=== PATIENT | female | born 1975 | race Caucasian/White ===

== ENCOUNTER → 2018-12-08 10:58 | Outpatient (CLI) | payer OTHER, SELFPAY ==
--- NOTE | 2019-01-28 08:12 | PM.CARDMON.1 ---
Quality Improvement Coordinator (Rn) Report Referral & Results Date Patient Seen: 12/08/18 Requesting provider: Tiffani Valdez Indication: Palpitations Duration of monitoring (days): 14 Diary information: No patient diary events were recorded 6 patient triggered events were associated with sinus rhythm, PACs and PVCs Data: Minimum heart rate identified was 41 beats per minute at 08:49 on 12/12/2018 Maximum sinus heart rate was 149 beats per minute at 15:00 on 12/18/2018 Maximum overall heart rate was 156 beats per minute during a 5 beat run of SVT/atrial tachycardia Less than 1% of identified beats or either ventricular supraventricular ectopic in origin No other runs of a supraventricular tachycardia type origin Impression: Essentially unremarkable youth nutritional monitor No etiology clearly identified on this study for patient's reported symptoms of palpitations. There were both PVCs and PACs associated with patient triggered times as well as sinus rhythm. overall burden of ectopic beats is very very low. Clinical correlation suggested
== END ==
PROVIDERS: Visit Provider Family Medicine
DX: R00.2 Palpitations (principal)
CPT/HCPCS: 0296T; 0298T

== ENCOUNTER 2020-05-23 13:16 | Emergency (ER) | payer OTHER, SELFPAY ==
--- NOTE | 2020-05-23 13:22 | DI.RAD.S_ITS ---
PROCEDURE: XR ACUTE ABDOMEN SERIES INDICATIONS: abd pain/ no bm x10 days TECHNIQUE: One view chest and two views of the abdomen were acquired. COMPARISON: None. FINDINGS: Surgical changes and devices: None. Chest: Lungs are clear. Heart size is normal. No pleural effusions. No pneumoperitoneum. Large amount of diffuse stool seen throughout the colon. Mild lateral curvature of the spine. IMPRESSION: Large amount of stool seen throughout the colon in keeping with fecal retention/impaction. No specific evidence of bowel obstruction seen at this time although if the patient's symptoms do not improve, continued surveillance with abdominal series radiographs could be performed. Dictated by: Meño Avelar M.D. on 05/23/2020 at 13:47 Approved by: Meño Avelar M.D. on 05/23/2020 at 13:48
[2020-05-23 13:26] VITALS: BP 130/87; PULSE 83; RESP 16; O2SAT 99
[2020-05-23] MEDS: MAGNESIUM CITRATE 300 ML SOLUTION PO (14:55)
--- NOTE | 2020-05-23 15:14 | PC.NURSE ---
standby for rectal exam. Patient tolerated well
[2020-05-23 15:19] VITALS: BP 128/76; PULSE 78; RESP 12; O2SAT 98
--- NOTE | 2020-05-23 19:21 | ED_ITS ---
HPI - Abdominal Pain <COLT LoraP - Last Filed: 05/24/20 00:30> General Chief Complaint: Abdominal Pain Stated Complaint: stomach issues x10 days Time Seen by Provider: 05/23/20 14:15 Source: patient Mode of arrival: Ambulatory Limitations: no limitations History of Present Illness HPI narrative: This is a 44 year female, smoker, who takes Suboxone daily and has history of constipation presents to ED with chief complain of no good bowel movement for last 10 days. Reports that she has bowel movement about 3 times a week usually but has not had never this long in the past without bowel movments. Patient has some epigastric region pain after she eats or drinks and she is afraid of eating since has not had good bowel movements. Patient had 1 episode of emesis after eating dinner 2 days ago. Patient denies history of any abdominal surgery in the past. Patient denies changes in her diet. Patient had passed gas last 2 days ago. She has started using over the counter MiraLax and Dulcolax orally about 5 days ago and had used Fleet enema once and had watery stool. She denies fever, chills, or urinary symptoms. Related Data Home Medications Medication Instructions Recorded Confirmed Dulcolax Stool Softener (dss) PO 05/24/20 Miralax 1 packet PO BID 05/24/20 05/24/20 buprenorphine-naloxone film 05/24/20 Review of Systems <JOSH Lora - Last Filed: 05/24/20 00:30> Review of Systems Narrative: General: Denies fever, chills, fatigue, malaise, sweats. HEENT: Denies sinus pain, ear pain, sore throat, difficulty swallowing, dizziness. Respiratory: Denies dyspnea, cough, wheezing, hemoptysis, sputum. Cardiovascular: Denies chest pain, palpitations, orthopnea, edema. Gastrointestinal: See HPI : Denies dysuria, frequency, incontinence, hematuria, urinary retention. Musculoskeletal: Denies weakness, joint pain or bony pain. Skin: Denies rash, skin lesions, or other. Neurologic: Denies weakness, headache, numbness, change in speech, confusion, se izures, incoordination. Psychiatric: No concerning psychosocial issues. 12-point review of systems is negative except for those stated above. Patient History <JOSH Lora - Last Filed: 05/24/20 00:30> Medical History Chronic back pain (Acute) Narcotic drug use (Acute) Surgical History History of bilateral tubal ligation (Acute) History of tonsillectomy (Acute) Previous back surgery (Acute) Social History Smoking Status: Current every day smoker Smoking Status: Current every day smoker Substance Use Type: does not use Exam <JOSH Lora - Last Filed: 05/24/20 00:30> Narrative Exam Narrative: GEN: Alert, oriented x 3, well appearing and nourished, and in no acute distress. Head: Normal cephalic, atraumatic. No scalp or temporal tenderness, palpable mass or rash. EYES: Pupils are equal, round, and reactive to light and accommodation. Extraocular muscles are intact bilaterally. There is no subconjunctival hemorrhage, exudate and sclera non-icteric. ENT: Hearing grossly intact. Nose without bleeding, purulent discharge or deviation. Mucous membrane moist, no mucosal lesion. Throat without erythema, tonsillar hypertrophy or exudate. Uvula in midline, airway patent. Neck: Trachea in midline. No JVD, non-tender without lymphadenopathy. No masses or thyroid megaly. Supple, non-tender and no meningeal signs. CARDIAC: Normal regular rate and rhythm without murmurs, gallops, or rubs. No chest wall tenderness. No peripheral edema, cyanosis or pallor. Capillary refill is less than 2 seconds. RESPIRATORY: Lungs are clear to auscultate bilaterally. No cough, wheezes, rales, or rhonchi. No stridor, respiratory distress, increase work of breathing, or accessary muscle used. ABD: Abdomen soft, nontender and non-distended. No guarding or rebound tenderness to palpate. Bowel sounds are normal in all 4 quadrants. There is no palpable masses or organomegaly. No stool palpated in rectum (stand by assist with MAGDA Chaves). No obvious internal hemorrhoid palpated. EXT: Full painless ROM of all extremities with no loss of sensation, strength, effusion or edema. SKIN: Warm, dry, normal color for patient. No erythema, lesions or rash over visible areas. BACK: Nontender without deformity or crepitance. No flank tenderness. NEUROLOGICAL: Alert and oriented to place, time and person. Sensation and motor function intact bilaterally. No facial droops, dysphasia. PSYCHIATRIC: Good judgement and reason, without hallucinations, abnormal affect or abnormal behaviors during the examination. Patient is not suicidal. Initial Vital Signs Initial Vital Signs: Vital Signs Pulse Rate 83 05/23/20 13:26 Respiratory Rate 16 05/23/20 13:26 Blood Pressure 130/87 05/23/20 13:26 Pulse Oximetry 99 05/23/20 13:26 <Christian Sandhu MD - Last Filed: 05/29/20 03:43> Initial Vital Signs Initial Vital Signs: Vital Signs Pulse Rate 83 05/23/20 13:26 Respiratory Rate 16 05/23/20 13:26 Blood Pressure 130/87 05/23/20 13:26 Pulse Oximetry 99 05/23/20 13:26 Scores <JOSH Lora - Last Filed: 05/24/20 00:30> GCS [place] coma scale eye opening: Spontaneous [place] coma scale verbal response: Orientated [place] coma scale motor response: Obey commands [place] coma scale total score: 15 qSOFA Altered Mental Status (GCS <15): No Respiratory rate greater than/equal to 22: No Systolic blood pressure less than or equal to 100: No qSOFA Total: 0 0-1 Not High Risk 1-3 High risk Course <JOSH Lora - Last Filed: 05/24/20 00:30> Orders Ordered: Discontinued Medications Magnesium Citrate (Magnesium Citrate) 300 ml PO NOW ONE Stop: 05/23/20 14:44 Last Admin: 05/23/20 14:55 Dose: 300 ml Documented by: SILVIA Vital Signs Vital signs: Vital Signs - 8 hr 05/23/20 13:26 05/23/20 15:19 Pulse Rate 83 78 Respiratory Rate 16 12 Blood Pressure 130/87 128/76 Pulse Oximetry 99 98 <Chritsian Sandhu MD - Last Filed: 05/29/20 03:43> Orders Ordered: Discontinued Medications Magnesium Citrate (Magnesium Citrate) 300 ml PO NOW ONE Stop: 05/23/20 14:44 Last Admin: 05/23/20 14:55 Dose: 300 ml Documented by: HAYDEN Vital Signs Vital signs: Vital Signs - 8 hr 05/23/20 13:26 05/23/20 15:19 Pulse Rate 83 78 Respiratory Rate 16 12 Blood Pressure 130/87 128/76 Pulse Oximetry 99 98 MDM - Abdominal Pain <Miles JOSH Martel - Last Filed: 05/24/20 00:30> Differential Diagnosis Differential diagnosis: Likely abdominal pain, constipation, small bowel obstruction and other (Large bowel obstruction) Medical Records Attestation: I reviewed the patient's medical records. Imaging Data Abdominal x-ray: Radiologist's Impression: [address] [address] XRay Report Signed Patient: Juana Pollard#: [id number] : 1975Acct:[id number] Age/Sex: 44 / FDate of Service: 05/23/20 Loc: ED Accession Number: [id number] Procedure: XR acute abdomen series Ordering Provider: Christian Sandhu MD PROCEDURE: XR ACUTE ABDOMEN SERIES INDICATIONS: abd pain/ no bm x10 days TECHNIQUE: One view chest and two views of the abdomen were acquired. COMPARISON: None. FINDINGS: Surgical changes and devices: None. Chest: Lungs are clear. Heart size is normal. No pleural effusions. No pneumoperitoneum. Large amount of diffuse stool seen throughout the colon. Mild lateral curvature of the spine. IMPRESSION: Large amount of stool seen throughout the colon in keeping with fecal retention/impaction. No specific evidence of bowel obstruction seen at this time although if the patient's symptoms do not improve, continued surveillance with abdominal series radiographs could be performed. Dictated by: Meño Avelar M.D. on 05/23/2020 at 13:47 Approved by: Meño Avelar M.D. on 05/23/2020 at 13:48 [facility] Narrative Medical decision making narrative: This is 44-year-old female who presents to ED with constipation for last 10 days without good bowel movements. Patient had 1 episode of vomiting 2 days ago and she is still able to tolerate p.o. fluid and solid foods even though she is afraid to eat. Patient denies constitutional symptoms. Patient is using since 5 days ago [id number] MiraLax, Dulcolax, and Fleet enema once without good results. Patient initially declined rectal exam which she finally agrees to. No stool felt in rectal vault. Abdominal exam was unremarkable. Abdomen was soft to palpate without significant tenderness. Bowel sounds active in 4 quadrants. Patient is afebrile with within normal vital signs. Acute abdominal series indicates large amount of the future stool seen throughout the colon without obvious bowel obstructions appreciated at this time. Patient given 1/2 bottle of magnesium citrate in ED and discharged to home with remaining dose which she will repeated this afternoon at home. Patient informed if no bowel movements next 1 or 2 days, she may need soap enema to help with constipation/impaction and repeat imaging test. Return precautions were discussed with patient and patient verbalized understanding and agreement with the treatment plan. Discharge Plan Departure Patient Disposition: Home Clinical Impression: Constipation Qualifiers: Constipation type: unspecified constipation type Qualified Code(s): K59.00 - Constipation, unspecified Discharge Date/Time: 05/23/20 15:19 Instructions: DI for Constipation Activity Restrictions/Additional Instructions: You have been diagnosed with [constipation. No specific evidence of bowel obstruction per x-ray test. Please continue with your bowel regimen with stool softener, MiraLax and etc. ]. What to do: *Take your medications as directed. You were given with magnesium citrate while in ED. *Follow up with your primary care provider in 2-3 days, call for an appointment. Let them know you were seen in the ED and that we asked you to be seen in follow up. If you do not bowel movements next couple of days, you may require additional therapy such as soap enema. Please hydrate adequately as we discussed and adding high-fiber diet. *Return to ED if you have any new, worsening, or concerning symptoms, such as [fever, unable to tolerate fluids, vomiting, chest pain, breathing difficulty, or any acute concerns]. Prescriptions: No Action buprenorphine-naloxone 8-2 mg film RF: 0 Dulcolax Stool Softener (dss) PO RF: 0 Miralax 1 packet PO BID RF: 0 Referrals: [facility] [Outside] Stand Alone Forms: Work Release Note <Christian Sandhu MD - Last Filed: 05/29/20 03:43> Cosign ED Attending Cosignature Attestation: I was immediately available in the department for consultation. This documentation has been reviewed and I agree with assessment and plan. Supervised by Christian Sandhu MD
== END 2020-05-23 15:19 | disposition home or self-care (01) ==
PROVIDERS: Emergency Provider Nurse Practitioner Family
DX: K59.00 Constipation, unspecified (principal)
CPT/HCPCS: 74022; 99283

== ENCOUNTER 2020-09-08 11:35 | Emergency (ER) | payer OTHER, SELFPAY ==
[2020-09-08] VITALS (8 sets, daily range): BP systolic 111–143; BP diastolic 58–82; PULSE 57–81; RESP 12–18; TEMP 36.9; O2SAT 98–100; BMI 29.0
[2020-09-08 12:17] LABS: COVID19 -Nasal RAPID Negative (Negative)
[2020-09-08] MEDS: ONDANSETRON 4 MG/2 ML INJ IV ×2 (12:33→15:17)
[2020-09-08] MEDS: SODIUM CHLORIDE 0.9% 1,000 ML 1000 ML IV (12:33)
[2020-09-08 12:39] LABS: Add Manual Diff / Slide Review NO; Basophils Absolute Auto 0 /uL (0-100); Basophils Percent Auto 0.4 % (0-2); Eosinophils Absolute Auto 100 /uL (0-450); Eosinophils Percent Auto 1.8 % (2-4); Hematocrit 42.8 % (36-46); Hemoglobin 14.4 g/dL (12.0-16.0); Lymphocytes Absolute Auto 1800 /uL (1100-4500); Lymphocytes Percent Auto 21.9 % (25-40); Mean Corpuscular HGB Conc 33.6 % (30-36); Mean Corpuscular Hemoglobin 30.5 PG (26-34); Mean Corpuscular Volume 90.8 fL (80-100); Monocytes Absolute Auto 400 /uL (0-900); Monocytes Percent Auto 4.4 % (3-14); Neutrophils Absolute Auto 5900 /uL (1500-7000); Neutrophils Percent Auto 71.5 % (50-75); Platelet Count 249 X10^3/uL (150-400); Red Blood Cell Count 4.72 X10^6/uL (4.0-5.2); Red Cell Distribution Width 13.5 % (11.6-14.8); White Blood Cell Count 8.3 X10^3/uL (4.5-11.0)
[2020-09-08 12:41] LABS: Alanine Aminotransferase 23 IU/L (<35); Albumin 4.2 g/dL (3.5-5.0); Albumin Globulin Ratio 1.4 (1.0-2.8); Alkaline Phosphatase 54 U/L (38-126); Aspartate Aminotransferase 26 IU/L (14-36); BUN Creatinine Ratio 25.5 (6-22); Bilirubin Total 0.7 mg/dL (0.2-1.3); Blood Urea Nitrogen 14 mg/dL (7-17); Carbon Dioxide 31 mmol/L (22-32); Chloride 104 mmol/L (98-107); Estimated Glomerular Filt Rate > 60.0 mL/min (>60); Glucose 103 mg/dL (70-100); HEMOLYSIS < 15 (0-50); Lipase 44 U/L (23-300); Potassium 3.4 mmol/L (3.4-5.1); Sodium 137 mmol/L (137-145); Total Protein 7.2 g/dL (6.3-8.2)
[2020-09-08 13:19] LABS: Influenza A - CEPHEID Flu A NEGATIVE (NEGATIVE); Influenza B - CEPHEID Flu B NEGATIVE (NEGATIVE)
[2020-09-08] MEDS: ACETAMINOPHEN 325 MG TABLET 650 MG PO (13:27)
[2020-09-08 13:39] LABS: COVID19 -Nasal RAPID Negative (Negative)
--- NOTE | 2020-09-08 13:57 | ED_ITS ---
HPI - Nausea/Vomiting/Diarrhea <JOSH Lora - Last Filed: 09/08/20 21:33> General Chief complaint: Nausea/Vomiting/Diarrhea Stated complaint: EXPOSED TO COVID, FEELS SICK Time Seen by Provider: 09/08/20 11:49 Source: patient Mode of arrival: Family Vehicle Limitations: no limitations History of Present Illness HPI Narrative: This is a 44 year female, smoker, who has past medical history significant for chronic back pain take naproxen daily presents to ED with chief complain of COVID exposure 4 days ago from a co-worker who had tested positive for COVID 2 days ago. She works at [employer] where residents and staff are both tested positive for Covids. She reports symptoms started yesterday evening with body aches, subjective fever, chills, multiple episodes of nausea and vomiting, and headaches. Patient had sore throat 2 days ago which resolved. Patient reports had about 7 episodes of vomiting and 8 episodes of diarrhea without hematemesis, hematochezia, or tarry stools. Emesis mixed with food particles, liquids, and mucus. Patient denies chest pain, cough, short of breath, dizziness. Patient has intermittent abdominal cramping discomfort but not at this time. She has been taking ibuprofen since last night and last dose was 2 hours before coming into ED. patient denies recent antibiotic medication use. Related Data Home Medications Medication Instructions Recorded Confirmed Dulcolax Stool Softener (dss) PO 05/24/20 Miralax 1 packet PO BID 05/24/20 05/24/20 buprenorphine-naloxone film 05/24/20 Previous Rx's Medication Instructions Recorded ondansetron 4 mg PO BID-TID PRN #7 tab 09/08/20 Allergies Allergy/AdvReac Type Severity Reaction Status Date / Time No Known Drug Allergies Allergy Verified 09/08/20 11:55 Review of Systems <JOSH Lora - Last Filed: 09/08/20 21:33> Review of Systems Narrative: General: See HPI HEENT: Denies sinus pain, ear pain, (+) resolved sore throat, difficulty swallowing, dizziness. Respiratory: Denies dyspnea, cough, wheezing, hemoptysis, sputum. Cardiovascular: Denies chest pain, palpitations, orthopnea, edema. Gastrointestinal: Denies nausea, vomiting, abdominal pain, diarrhea, constipation, melena. : See HPI Musculoskeletal: See HPI Skin: Denies rash, skin lesions, or other. Neurologic: Denies weakness, headache, numbness, change in speech, confusion, seizures, incoordination. Psychiatric: No concerning psychosocial issues. 12-point review of systems is negative except for those stated above. Patient History <JOSH Lora - Last Filed: 09/08/20 21:33> Medical History Chronic back pain Narcotic drug use Surgical History History of bilateral tubal ligation History of tonsillectomy Previous back surgery Social History Smoking Status: Current every day smoker Smoking Status: Current every day smoker tobacco type: cigarettes alcohol intake frequency: 0-2 drinks per day Substance Use Type: does not use Exam <JOSH Lora - Last Filed: 09/08/20 21:33> Narrative Exam Narrative: GEN: Alert, oriented x 3, well appearing and nourished, and in no acute distress or toxic appearing. Head: Normal cephalic, atraumatic. No scalp or temporal tenderness, palpable mass or rash. EYES: Pupils are equal, round, and reactive to light and accommodation. Extraocular muscles are intact bilaterally. There is no subconjunctival hemorrhage, exudate and sclera non-icteric. ENT: Bilateral auditory canals and tympanic membranes clear. Hearing grossly intact. Nose without bleeding, purulent discharge or deviation. Facial sinuses nontender to palpate. Mucous membrane moist, no mucosal lesion. Throat without erythema, tonsillar hypertrophy or exudate. Uvula in midline, airway patent. Neck: Trachea in midline. No JVD, non-tender without lymphadenopathy. No masses or thyroid megaly. Supple, non-tender and no meningeal signs. CARDIAC: Normal regular rate and rhythm without murmurs, gallops, or rubs. No chest wall tenderness. No peripheral edema, cyanosis or pallor. Capillary refill is less than 2 seconds. RESPIRATORY: Lungs are clear to auscultate bilaterally. No cough, wheezes, rales, or rhonchi. No stridor, respiratory distress, increase work of breathing, or accessary muscle used. ABD: Abdomen soft, nontender and non-distended. No guarding or rebound tenderness to palpate. Bowel sounds are normal in all 4 quadrants. There is no palpable masses or organomegaly. EXT: Full painless ROM of all extremities with no loss of sensation, strength, effusion or edema. SKIN: Warm, dry, normal color for patient. No erythema, lesions or rash over visible areas. BACK: Nontender without deformity or crepitance. No flank tenderness. NEUROLOGICAL: Alert and oriented to place, time and person. Sensation and motor function intact bilaterally. No facial droops, dysphasia. PSYCHIATRIC: Good judgement and reason, without hallucinations, abnormal affect or abnormal behaviors during the examination. Patient is not suicidal. Initial Vital Signs Initial Vital Signs: Vital Signs Pulse Rate 76 09/08/20 11:48 Respiratory Rate 12 09/08/20 11:48 Blood Pressure 136/77 09/08/20 11:48 Pulse Oximetry 98 09/08/20 11:48 <Lluvia Chandler MD - Last Filed: 09/15/20 07:21> Initial Vital Signs Initial Vital Signs: Vital Signs Pulse Rate 76 09/08/20 11:48 Respiratory Rate 12 09/08/20 11:48 Blood Pressure 136/77 09/08/20 11:48 Pulse Oximetry 98 09/08/20 11:48 Scores <JOSH Lora - Last Filed: 09/08/20 21:33> GCS Negar coma scale eye opening: Spontaneous Negar coma scale verbal response: Orientated [place] coma scale motor response: Obey commands Negar coma scale total score: 15 qSOFA Altered Mental Status (GCS <15): No Respiratory rate greater than/equal to 22: No Systolic blood pressure less than or equal to 100: No qSOFA Total: 0 0-1 Not High Risk 1-3 High risk Course <JOSH Lora - Last Filed: 09/08/20 21:33> Orders Ordered: Discontinued Medications Acetaminophen (Acetaminophen 325 Mg Tablet) 650 mg PO NOW ONE Stop: 09/08/20 13:22 Last Admin: 09/08/20 13:27 Dose: 650 mg Documented by: GEGE Sodium Chloride (Normal Saline 0.9%) 1,000 mls @ 1,000 mls/hr IV BOLUS ONE Stop: 09/08/20 13:19 Last Infusion: 09/08/20 14:03 Dose: 0 mls/hr Documented by: Admin: 09/08/20 12:33 Dose: 1,000 mls/hr Documented by: GEGE Sodium Chloride (Normal Saline 0.9%) 500 mls @ 1,000 mls/hr IV BOLUS ONE Stop: 09/08/20 15:28 Last Infusion: 09/08/20 15:53 Dose: 0 mls/hr Documented by: Admin: 09/08/20 15:16 Dose: 1,000 mls/hr Documented by: GEGE Ketorolac Tromethamine (Ketorolac 60 Mg/2 Ml Vial) 15 mg IV NOW ONE Stop: 09/08/20 14:57 Last Admin: 09/08/20 15:16 Dose: 15 mg Documented by: GEGE Ondansetron HCl (Ondansetron 4 Mg/2 Ml Inj) 4 mg IV NOW ONE Stop: 09/08/20 12:21 Last Admin: 09/08/20 12:33 Dose: 4 mg Documented by: GEGE Ondansetron HCl (Ondansetron 4 Mg/2 Ml Inj) 4 mg IV NOW ONE Stop: 09/08/20 14:57 Last Admin: 09/08/20 15:17 Dose: 4 mg Documented by: GEGE Reevaluation(s) Reevaluation #1: Patient reports nausea improved and happy to find out about negative rapid Covid test result. Time: 13:20 Reevaluation #2: Reports headache has not improved much after the Tylenol. Toradol IV has been ordered and additional Zofran not resolved nausea. Additinoal NS 500 mL ordred. She does not appears to be toxic. Again no nuchal rigidity or unusual rashes seen at this time. Time: 14:45 Reevaluation #3: MAGDA Yeager informs that patient had an episode of not feelng well. Noticed sinus bradycardia on the monitor and EKG ordered. Patient denies chest pain, dyspnea, abdominal pain, severe nausea. Time: 15:25 Vital Signs Vital signs: Vital Signs - 8 hr 09/08/20 14:00 09/08/20 15:00 09/08/20 16:03 Pulse Rate 59 L 65 59 L Respiratory Rate 14 14 16 Blood Pressure 116/63 111/64 131/64 Pulse Oximetry 100 100 99 <Lluvia Chandler MD - Last Filed: 09/15/20 07:21> Orders Ordered: Discontinued Medications Acetaminophen (Acetaminophen 325 Mg Tablet) 650 mg PO NOW ONE Stop: 09/08/20 13:22 Last Admin: 09/08/20 13:27 Dose: 650 mg Documented by: GEGE Sodium Chloride (Normal Saline 0.9%) 1,000 mls @ 1,000 mls/hr IV BOLUS ONE Stop: 09/08/20 13:19 Last Infusion: 09/08/20 14:03 Dose: 0 mls/hr Documented by: Admin: 09/08/20 12:33 Dose: 1,000 mls/hr Documented by: GEGE Sodium Chloride (Normal Saline 0.9%) 500 mls @ 1,000 mls/hr IV BOLUS ONE Stop: 09/08/20 15:28 Last Infusion: 09/08/20 15:53 Dose: 0 mls/hr Documented by: Admin: 09/08/20 15:16 Dose: 1,000 mls/hr Documented by: GEGE Ketorolac Tromethamine (Ketorolac 60 Mg/2 Ml Vial) 15 mg IV NOW ONE Stop: 09/08/20 14:57 Last Admin: 09/08/20 15:16 Dose: 15 mg Documented by: GEGE Ondansetron HCl (Ondansetron 4 Mg/2 Ml Inj) 4 mg IV NOW ONE Stop: 09/08/20 12:21 Last Admin: 09/08/20 12:33 Dose: 4 mg Documented by: GEGE Ondansetron HCl (Ondansetron 4 Mg/2 Ml Inj) 4 mg IV NOW ONE Stop: 09/08/20 14:57 Last Admin: 09/08/20 15:17 Dose: 4 mg Documented by: GEGE Vital Signs Vital signs: Vital Signs - 8 hr 09/08/20 14:00 09/08/20 15:00 09/08/20 16:03 Pulse Rate 59 L 65 59 L Respiratory Rate 14 14 16 Blood Pressure 116/63 111/64 131/64 Pulse Oximetry 100 100 99 MDM - Nausea/Vomiting/Diarrhea <Miles JOSH Martel - Last Filed: 09/08/20 21:33> Differential Diagnosis Differential diagnosis: Likely gastroenteritis, clostridium difficile infection, dehydration and other (Covid, Flu) Medical Records Attestation: I reviewed the patient's medical records. Lab Data Attestation: I reviewed the patient's lab results. Result diagrams: 09/08/20 12:00 09/08/20 12:00 Labs: Lab Results 09/08/20 09/08/20 09/08/20 Range/Units 11:50 12:00 12:00 WBC 8.3 (4.5-11.0) X10^3/uL RBC 4.72 (4.0-5.2) X10^6/uL Hgb 14.4 (12.0-16.0) g/dL Hct 42.8 (36-46) % MCV 90.8 (80-100) fL MCH 30.5 (26-34) PG MCHC 33.6 (30-36) % RDW 13.5 (11.6-14.8) % Plt Count 249 (150-400) X10^3/uL Neut % (Auto) 71.5 (50-75) % Lymph % (Auto) 21.9 L (25-40) % [place] % (Auto) 4.4 (3-14) % Eos % (Auto) 1.8 L (2-4) % Baso % (Auto) 0.4 (0-2) % Neut # (Auto) 5900 (4642-0909) /uL Lymph # (Auto) 1800 (6013-0511) /uL [place] # (Auto) 400 (0-900) /uL Eos # (Auto) 100 (0-450) /uL Baso # (Auto) 0 (0-100) /uL Sodium 137 (137-145) mmol/L Potassium 3.4 (3.4-5.1) mmol/L Chloride 104 (98-107) mmol/L Carbon Dioxide 31 (22-32) mmol/L BUN 14 (7-17) mg/dL Creatinine 0.55 (0.52-1.04) mg/dL Estimated GFR > 60.0 (>60) mL/min BUN/Creatinine Ratio 25.5 H (6-22) Glucose 103 H (70-100) mg/dL Calcium 9.0 (8.4-10.2) mg/dL Total Bilirubin 0.7 (0.2-1.3) mg/dL AST 26 (14-36) IU/L ALT 23 (<35) IU/L Alkaline Phosphatase 54 (38-126) U/L Total Protein 7.2 (6.3-8.2) g/dL Albumin 4.2 (3.5-5.0) g/dL Globulin 3.0 (1.7-4.1) g/dL Albumin/Globulin Ratio 1.4 (1.0-2.8) Lipase 44 (23-300) U/L Urine Color Urine Appearance Urine pH (4.5-8.0) Ur Specific [place] (1.000-1.035) Urine Protein (Negative) Urine Glucose (UA) (Negative) g/dL Urine Ketones (NEGATIVE) Urine Occult Blood (Negative) Urine Nitrate (Negative) Urine Bilirubin (NEGATIVE) Urine Urobilinogen (0.2) E.U./dL Ur Leukocyte Esterase (NEGATIVE) Urine RBC (0-5/HPF) Urine WBC (0-5/HPF) Urine Bacteria (None) Ur Culture Indicated? Micro UA Comment Urine Test (Negative) COVID-19 PCR Negative (Negative) Influenza A (RT-PCR) (NEGATIVE) Influenza B (RT-PCR) (NEGATIVE) 09/08/20 09/08/20 09/08/20 Range/Units 12:40 12:40 13:37 WBC (4.5-11.0) X10^3/uL RBC (4.0-5.2) X10^6/uL Hgb (12.0-16.0) g/dL Hct (36-46) % MCV (80-100) fL MCH (26-34) PG MCHC (30-36) % RDW (11.6-14.8) % Plt Count (150-400) X10^3/uL Neut % (Auto) (50-75) % Lymph % (Auto) (25-40) % [place] % (Auto) (3-14) % Eos % (Auto) (2-4) % Baso % (Auto) (0-2) % Neut # (Auto) (6713-6299) /uL Lymph # (Auto) (7030-0679) /uL [place] # (Auto) (0-900) /uL Eos # (Auto) (0-450) /uL Baso # (Auto) (0-100) /uL Sodium (137-145) mmol/L Potassium (3.4-5.1) mmol/L Chloride (98-107) mmol/L Carbon Dioxide (22-32) mmol/L BUN (7-17) mg/dL Creatinine (0.52-1.04) mg/dL Estimated GFR (>60) mL/min BUN/Creatinine Ratio (6-22) Glucose (70-100) mg/dL Calcium (8.4-10.2) mg/dL Total Bilirubin (0.2-1.3) mg/dL AST (14-36) IU/L ALT (<35) IU/L Alkaline Phosphatase (38-126) U/L Total Protein (6.3-8.2) g/dL Albumin (3.5-5.0) g/dL Globulin (1.7-4.1) g/dL Albumin/Globulin Ratio (1.0-2.8) Lipase (23-300) U/L Urine Color Yellow Urine Appearance Clear Urine pH 6.5 (4.5-8.0) Ur Specific [place] 1.020 (1.000-1.035) Urine Protein Negative (Negative) Urine Glucose (UA) Negative (Negative) g/dL Urine Ketones Negative (NEGATIVE) Urine Occult Blood 1+ H (Negative) Urine Nitrate Negative (Negative) Urine Bilirubin Negative (NEGATIVE) Urine Urobilinogen 0.2 (0.2) E.U./dL Ur Leukocyte Esterase Negative (NEGATIVE) Urine RBC None seen (0-5/HPF) Urine WBC None seen (0-5/HPF) Urine Bacteria None seen (None) Ur Culture Indicated? Cult not indicated Micro UA Comment Microscopic normal Urine Test (Negative) COVID-19 PCR Negative (Negative) Influenza A (RT-PCR) Flu a negative (NEGATIVE) Influenza B (RT-PCR) Flu b negative (NEGATIVE) 09/08/20 Range/Units 13:37 WBC (4.5-11.0) X10^3/uL RBC (4.0-5.2) X10^6/uL Hgb (12.0-16.0) g/dL Hct (36-46) % MCV (80-100) fL MCH (26-34) PG MCHC (30-36) % RDW (11.6-14.8) % Plt Count (150-400) X10^3/uL Neut % (Auto) (50-75) % Lymph % (Auto) (25-40) % [place] % (Auto) (3-14) % Eos % (Auto) (2-4) % Baso % (Auto) (0-2) % Neut # (Auto) (8094-6657) /uL Lymph # (Auto) (2796-8048) /uL [place] # (Auto) (0-900) /uL Eos # (Auto) (0-450) /uL Baso # (Auto) (0-100) /uL Sodium (137-145) mmol/L Potassium (3.4-5.1) mmol/L Chloride (98-107) mmol/L Carbon Dioxide (22-32) mmol/L BUN (7-17) mg/dL Creatinine (0.52-1.04) mg/dL Estimated GFR (>60) mL/min BUN/Creatinine Ratio (6-22) Glucose (70-100) mg/dL Calcium (8.4-10.2) mg/dL Total Bilirubin (0.2-1.3) mg/dL AST (14-36) IU/L ALT (<35) IU/L Alkaline Phosphatase (38-126) U/L Total Protein (6.3-8.2) g/dL Albumin (3.5-5.0) g/dL Globulin (1.7-4.1) g/dL Albumin/Globulin Ratio (1.0-2.8) Lipase (23-300) U/L Urine Color Urine Appearance Urine pH (4.5-8.0) Ur Specific [place] (1.000-1.035) Urine Protein (Negative) Urine Glucose (UA) (Negative) g/dL Urine Ketones (NEGATIVE) Urine Occult Blood (Negative) Urine Nitrate (Negative) Urine Bilirubin (NEGATIVE) Urine Urobilinogen (0.2) E.U./dL Ur Leukocyte Esterase (NEGATIVE) Urine RBC (0-5/HPF) Urine WBC (0-5/HPF) Urine Bacteria (None) Ur Culture Indicated? Micro UA Comment Urine Test Negative (Negative) COVID-19 PCR (Negative) Influenza A (RT-PCR) (NEGATIVE) Influenza B (RT-PCR) (NEGATIVE) ECG Data Attestation: I personally reviewed and interpreted this ECG as follows: Prior ECG tracings: not available for review Interpretation: Sinus bradycardia rate of 49. Normal [place]. ME interval 49, QRS duration 158. QT/QTc 470/424. No acute ST changes. 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 Patient reports generalize body aches, subjective fever, chills, headache, and multiple episodes diarrhea and vomiting yesterday evening. Physical exam was unremarkable. Patient is afebrile with within normal limits of heart rate and blood pressure. O2 sat at 98-100% in room air. Rapid Covid and back up tests were negative as well as Flu test. No leukocytosis. Unremarkable CBC test results. Normal kidney function but slightly elevated BUN/Cr ration of 25.5 and normal electrolytes. Normal LFTs and lipase. Urine test was negative for and no indications for infection. EKG with sinus bradycardia without acute ST changes. Patient was evaluated several times during ED stay. Patient reports remaining headache but improved nausea and was able to tolerate liquid without vomiting. 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 Patient was medicated with IV fluid of 1.5 L, IV TOradol, Tylenol, and 2 doses of Zofran for nausea. No anti diarrheal medication provided in case this infection etiology. Patient advised to keep COVID guideline with good hand hygiene and social distancing. Return precautions were discussed with patient and discharged to home with Zofran for as needed use and to hydrate adequately. Work off note for a day provided as needed. Patient verbalized understanding and agreement with the treatment plan. <Lluvia Chandler MD - Last Filed: 09/15/20 07:21> Lab Data Labs: Lab Results 09/08/20 09/08/20 09/08/20 Range/Units 11:50 12:00 12:00 WBC 8.3 (4.5-11.0) X10^3/uL RBC 4.72 (4.0-5.2) X10^6/uL Hgb 14.4 (12.0-16.0) g/dL Hct 42.8 (36-46) % MCV 90.8 (80-100) fL MCH 30.5 (26-34) PG MCHC 33.6 (30-36) % RDW 13.5 (11.6-14.8) % Plt Count 249 (150-400) X10^3/uL Neut % (Auto) 71.5 (50-75) % Lymph % (Auto) 21.9 L (25-40) % [place] % (Auto) 4.4 (3-14) % Eos % (Auto) 1.8 L (2-4) % Baso % (Auto) 0.4 (0-2) % Neut # (Auto) 5900 (5978-6680) /uL Lymph # (Auto) 1800 (8421-0871) /uL [place] # (Auto) 400 (0-900) /uL Eos # (Auto) 100 (0-450) /uL Baso # (Auto) 0 (0-100) /uL Sodium 137 (137-145) mmol/L Potassium 3.4 (3.4-5.1) mmol/L Chloride 104 (98-107) mmol/L Carbon Dioxide 31 (22-32) mmol/L BUN 14 (7-17) mg/dL Creatinine 0.55 (0.52-1.04) mg/dL Estimated GFR > 60.0 (>60) mL/min BUN/Creatinine Ratio 25.5 H (6-22) Glucose 103 H (70-100) mg/dL Calcium 9.0 (8.4-10.2) mg/dL Total Bilirubin 0.7 (0.2-1.3) mg/dL AST 26 (14-36) IU/L ALT 23 (<35) IU/L Alkaline Phosphatase 54 (38-126) U/L Total Protein 7.2 (6.3-8.2) g/dL Albumin 4.2 (3.5-5.0) g/dL Globulin 3.0 (1.7-4.1) g/dL Albumin/Globulin Ratio 1.4 (1.0-2.8) Lipase 44 (23-300) U/L Urine Color Urine Appearance Urine pH (4.5-8.0) Ur Specific [place] (1.000-1.035) Urine Protein (Negative) Urine Glucose (UA) (Negative) g/dL Urine Ketones (NEGATIVE) Urine Occult Blood (Negative) Urine Nitrate (Negative) Urine Bilirubin (NEGATIVE) Urine Urobilinogen (0.2) E.U./dL Ur Leukocyte Esterase (NEGATIVE) Urine RBC (0-5/HPF) Urine WBC (0-5/HPF) Urine Bacteria (None) Ur Culture Indicated? Micro UA Comment Urine Test (Negative) COVID-19 PCR Negative (Negative) Influenza A (RT-PCR) (NEGATIVE) Influenza B (RT-PCR) (NEGATIVE) 09/08/20 09/08/20 09/08/20 Range/Units 12:40 12:40 13:37 WBC (4.5-11.0) X10^3/uL RBC (4.0-5.2) X10^6/uL Hgb (12.0-16.0) g/dL Hct (36-46) % MCV (80-100) fL MCH (26-34) PG MCHC (30-36) % RDW (11.6-14.8) % Plt Count (150-400) X10^3/uL Neut % (Auto) (50-75) % Lymph % (Auto) (25-40) % [place] % (Auto) (3-14) % Eos % (Auto) (2-4) % Baso % (Auto) (0-2) % Neut # (Auto) (7577-5115) /uL Lymph # (Auto) (3565-4522) /uL [place] # (Auto) (0-900) /uL Eos # (Auto) (0-450) /uL Baso # (Auto) (0-100) /uL Sodium (137-145) mmol/L Potassium (3.4-5.1) mmol/L Chloride (98-107) mmol/L Carbon Dioxide (22-32) mmol/L BUN (7-17) mg/dL Creatinine (0.52-1.04) mg/dL Estimated GFR (>60) mL/min BUN/Creatinine Ratio (6-22) Glucose (70-100) mg/dL Calcium (8.4-10.2) mg/dL Total Bilirubin (0.2-1.3) mg/dL AST (14-36) IU/L ALT (<35) IU/L Alkaline Phosphatase (38-126) U/L Total Protein (6.3-8.2) g/dL Albumin (3.5-5.0) g/dL Globulin (1.7-4.1) g/dL Albumin/Globulin Ratio (1.0-2.8) Lipase (23-300) U/L Urine Color Yellow Urine Appearance Clear Urine pH 6.5 (4.5-8.0) Ur Specific [place] 1.020 (1.000-1.035) Urine Protein Negative (Negative) Urine Glucose (UA) Negative (Negative) g/dL Urine Ketones Negative (NEGATIVE) Urine Occult Blood 1+ H (Negative) Urine Nitrate Negative (Negative) Urine Bilirubin Negative (NEGATIVE) Urine Urobilinogen 0.2 (0.2) E.U./dL Ur Leukocyte Esterase Negative (NEGATIVE) Urine RBC None seen (0-5/HPF) Urine WBC None seen (0-5/HPF) Urine Bacteria None seen (None) Ur Culture Indicated? Cult not indicated Micro UA Comment Microscopic normal Urine Test (Negative) COVID-19 PCR Negative (Negative) Influenza A (RT-PCR) Flu a negative (NEGATIVE) Influenza B (RT-PCR) Flu b negative (NEGATIVE) 09/08/20 Range/Units 13:37 WBC (4.5-11.0) X10^3/uL RBC (4.0-5.2) X10^6/uL Hgb (12.0-16.0) g/dL Hct (36-46) % MCV (80-100) fL MCH (26-34) PG MCHC (30-36) % RDW (11.6-14.8) % Plt Count (150-400) X10^3/uL Neut % (Auto) (50-75) % Lymph % (Auto) (25-40) % [place] % (Auto) (3-14) % Eos % (Auto) (2-4) % Baso % (Auto) (0-2) % Neut # (Auto) (6140-2633) /uL Lymph # (Auto) (0382-6792) /uL [place] # (Auto) (0-900) /uL Eos # (Auto) (0-450) /uL Baso # (Auto) (0-100) /uL Sodium (137-145) mmol/L Potassium (3.4-5.1) mmol/L Chloride (98-107) mmol/L Carbon Dioxide (22-32) mmol/L BUN (7-17) mg/dL Creatinine (0.52-1.04) mg/dL Estimated GFR (>60) mL/min BUN/Creatinine Ratio (6-22) Glucose (70-100) mg/dL Calcium (8.4-10.2) mg/dL Total Bilirubin (0.2-1.3) mg/dL AST (14-36) IU/L ALT (<35) IU/L Alkaline Phosphatase (38-126) U/L Total Protein (6.3-8.2) g/dL Albumin (3.5-5.0) g/dL Globulin (1.7-4.1) g/dL Albumin/Globulin Ratio (1.0-2.8) Lipase (23-300) U/L Urine Color Urine Appearance Urine pH (4.5-8.0) Ur Specific [place] (1.000-1.035) Urine Protein (Negative) Urine Glucose (UA) (Negative) g/dL Urine Ketones (NEGATIVE) Urine Occult Blood (Negative) Urine Nitrate (Negative) Urine Bilirubin (NEGATIVE) Urine Urobilinogen (0.2) E.U./dL Ur Leukocyte Esterase (NEGATIVE) Urine RBC (0-5/HPF) Urine WBC (0-5/HPF) Urine Bacteria (None) Ur Culture Indicated? Micro UA Comment Urine Test Negative (Negative) COVID-19 PCR (Negative) Influenza A (RT-PCR) (NEGATIVE) Influenza B (RT-PCR) (NEGATIVE) Discharge Plan Departure Patient Disposition: Home Clinical Impression: Nausea, vomiting and diarrhea, Dehydration Instructions: DI for Dehydration -- Adult, DI for Viral Gastroenteritis -- Adult Activity Restrictions/Additional Instructions: You have been diagnosed with [nausea, vomiting and diarrhea. No indications for severe infection per blood or urine test. Covid and flu tests were negative. Please continue with COVID precautions with good hand hydration, social distancing.]. What to do: *Take your medications as directed. Take Zofran as needed for nausea and vomiting to help hydrate yourself. *Follow up with your primary care provider in 2-3 days, call for an appointment. Let them know you were seen in the ED and that we asked you to be seen in follow up. *Return to ED if you have any new, worsening, or concerning symptoms, such as [fever, abdominal pain, chest pain, unable to tolerate fluids, blood in her stool or vomit, breathing difficulty or any acute concerns]. Prescriptions: New ondansetron 4 mg tablet,disintegrating 4 mg PO BID-TID PRN (Reason: nausea and vomiting) Qty: 7 RF: 0 No Action buprenorphine-naloxone 8-2 mg film RF: 0 Dulcolax Stool Softener (dss) PO RF: 0 Miralax 1 packet PO BID RF: 0 Referrals: [facility] [Outside] Stand Alone Forms: Work Release Note <Lluvia Chandler MD - Last Filed: 09/15/20 07:21> Cosign ED Attending Cosignature Attestation: I was immediately available in the department for consultation throughout this patient's visit. I agree with documentation as above. Lluvia Chandler MD
[2020-09-08 14:11] LABS: Appearance Urine UA CLEAR; Bacteria Urine None Seen; Bilirubin Urine UA NEGATIVE (NEGATIVE); Color Urine UA YELLOW; Glucose Urine UA NEGATIVE (Negative); Ketones Urine UA NEGATIVE (NEGATIVE); Leukocyte Esterase Urine UA NEGATIVE (NEGATIVE); Nitrite Urine UA NEGATIVE (Negative); Occult Blood Urine UA 1+ (Negative); Protein Urine UA NEGATIVE (Negative); RBC Urine None Seen (0-5/HPF); Urobilinogen Urine UA 0.2 E.U./dL (0.2); WBC Urine None Seen (0-5/HPF)
[2020-09-08 14:23] LABS: Pregnancy Test Urine Negative (Negative)
[2020-09-08 14:24] LABS: pH Urine UA 6.5 (4.5-8.0)
[2020-09-08 14:53] LABS: Culture Indicated Urine Cult Not Indicated; Urine Comments Microscopic Normal
[2020-09-08] MEDS: SODIUM CHLORIDE 0.9% 500 ML 1000 ML IV (15:16)
[2020-09-08] MEDS: KETOROLAC 60 MG/2 ML VIAL 15 MG IV (15:16)
== END 2020-09-08 16:07 | disposition home or self-care (01) ==
PROVIDERS: Emergency Medicine; Emergency Provider Nurse Practitioner Family
DX: R11.2 Nausea with vomiting, unspecified (principal); R19.7 Diarrhea, unspecified; E86.0 Dehydration; R50.9 Fever, unspecified; R51.9 Headache, unspecified
CPT/HCPCS: 36415; 80053; 81001; 81025; 83690; 85025; 87502; 87635; 93005; 96361; 96374; 96375; 96376; 99283; 99284; J1885; J2405